=== PATIENT | male | born 1995 | race African-American/Black ===

== ENCOUNTER 2022-09-07 12:18 | Emergency (ER) | payer OTHER ==
[2022-09-07 12:31] VITALS: BP 142/82; PULSE 84; RESP 16; TEMP 97.7
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
== END 2022-09-07 13:15 | disposition home or self-care (01) ==
LOC: EC 12:18
DX: J32.9 Chronic sinusitis, unspecified (principal); J34.3 Hypertrophy of nasal turbinates; F17.200 Nicotine dependence, unspecified, uncomplicated; F12.90 Cannabis use, unspecified, uncomplicated
CPT/HCPCS: 99283